=== PATIENT | male | born 1995 | race Caucasian/White ===

== ENCOUNTER → 2020-01-20 | Outpatient (CLI) | payer OTHER | LOC: LAB 10:46 | PROVIDERS: ATTEND Nurse Practitioner | DX: U07.1 COVID-19 (principal); R05 Cough ==

== ENCOUNTER 2020-01-28 14:41 | Emergency (ER) | payer OTHER ==
[~2020-01-28] VITALS: Ht 177.8 cm; Wt 86.2 kg
[2020-01-28 16:06] LABS: HEMATOCRIT 45.1 % (42.0-52.0); HEMOGLOBIN 15.4 gm/dL (14.0-18.0); MCH 29.3 pg (26.0-34.0); MCHC 34.2 g/dL (28.0-37.0); MCV 85.8 fL (80.0-100.0); PLATELET COUNT 203 thou/uL (150-400); RBC 5.26 mil/uL (4.50-6.00); WBC 7.1 thou/uL (4.0-11.0)
[2020-01-28 16:12] LABS: CALCIUM 8.7 mg/dL (8.5-10.1); CREATININE 0.9 mg/dL (0.7-1.3); POTASSIUM 3.7 mmol/L (3.5-5.1)
[2020-01-28 16:18] LABS: ALBUMIN 3.5 g/dL (3.4-5.0); TOTAL BILIRUBIN 0.6 mg/dL (0.2-1.0); TOTAL PROTEIN 7.3 g/dL (6.4-8.2)
[2020-01-28 16:50] LABS: ABSOLUTE NEUTROPHILS 4.7 thou/uL (1.4-8.2); ATYPICAL LYMPHS 1 %
[2020-01-28 16:51] LABS: ANISOCYTOSIS 1+; POLYCHROMASIA OCCASIONAL
[2020-01-28] MEDS ORDERED: PREDNISONE 20 M20 MG PO (17:01)
[2020-01-28] MEDS ORDERED: VENTOLIN HFA INH8 GM INH (17:01)
[2020-01-28] MEDS ORDERED: DOXYCYCLINE 10100 MG PO (17:01)
[2020-01-28 17:36] VITALS: BP 126/64
== END 2020-01-28 17:36 | disposition home or self-care (01) ==
LOC: ER 14:41
PROVIDERS: Nurse Practitioner
DX: U07.1 COVID-19 (principal); J18.9 Pneumonia, unspecified organism; Z88.0 Allergy status to penicillin

== ENCOUNTER → 2020-04-11 | Outpatient (CLI) | payer OTHER ==
[~2020-04-11] MED LIST: DOXYCYCLINE 10100 MG PO; PREDNISONE 20 M20 MG PO; VENTOLIN HFA INH8 GM INH
== END ==
LOC: LAB 14:26
PROVIDERS: ATTEND Nurse Practitioner
DX: Z20.828 Contact with and (suspected) exposure to other viral communicable diseases (principal)

== ENCOUNTER 2021-07-08 12:25 | Emergency (ER) | payer OTHER ==
[~2021-07-08] VITALS: Ht 177.8 cm; Wt 86.2 kg
[2021-07-08 12:26] VITALS: BP 122/77
[2021-07-08] MEDS ORDERED: ARTHRITIS PAIN100 GM TOP (13:24)
[2021-07-08] MEDS ORDERED: NAPROSYN500 MG PO (13:24)
== END 2021-07-08 13:48 | disposition home or self-care (01) ==
LOC: ER
DX: M25.562 Pain in left knee (principal); R22.42 Localized swelling, mass and lump, left lower limb; Z88.0 Allergy status to penicillin; X50.0XXA Overexertion from strenuous movement or load, initial encounter; Y93.89 Activity, other specified; Y92.89 Other specified places as the place of occurrence of the external cause; Y99.8 Other external cause status